=== PATIENT | female | born 1995 | race Caucasian/White ===

== ENCOUNTER 2017-12-01 08:48 | Inpatient (IN) | payer MEDICAID, OTHER ==
[2017-12-01] MEDS: LIDOCAINE/MYLANTA 40 ML BTL PO (09:43)
[2017-12-01] MEDS: BELLADONNA/PHENOBARBITAL TAB PO (09:43)
[2017-12-01 10:18] LABS: ADD UMIC NO; UR ASCORBIC ACID NEGATIVE (NEGATIVE); UR BILIRUBIN (Dip) NEGATIVE (NEGATIVE); UR BLOOD (Dip) NEGATIVE (NEGATIVE); UR CLARITY SLIGHTLY CLOUDY (CLEAR); UR COLOR YELLOW (YELLOW); UR GLUCOSE (Dip) NEGATIVE (NEGATIVE); UR KETONES (Dip) TRACE mg/dL (NEGATIVE); UR LEUKOCYTE ESTERASE (Dip) NEGATIVE Leu/ul (NEGATIVE); UR MUCUS FEW /HPF (NONE SEEN); UR NITRITE (Dip) NEGATIVE (NEGATIVE); UR RBC 3 /HPF (0-5); UR SQUAMOUS EPITHELIAL CELL MODERATE /HPF (FEW); UR TOTAL PROTEIN (Dip) NEGATIVE (NEGATIVE); UR UROBILINOGEN (Dip) NEGATIVE (NEGATIVE); UR WBC 2 /HPF (0-5)
[2017-12-01 10:48] LABS: ADD MAN DIFF? NO
[2017-12-01] MEDS: morphine 4 MG/ML VIAL IV (10:49)
[2017-12-01 10:57] LABS: BASOPHILS % 0.2 % (0.0-2.0); HEMOGLOBIN 12.5 g/dl (12.0-16.0); LYMPHOCYTES # 0.6 10^3/ul (0.8-2.9); LYMPHOCYTES % 6.3 % (18.0-55.0); MEAN CORPUSCULAR HEMOGLOBIN 27.1 pg (29.0-33.0); MEAN CORPUSCULAR HGB CONC 32.9 g/dl (32.0-37.0); MEAN CORPUSCULAR VOLUME 82.4 fl (72.0-104.0); MEAN PLATELET VOLUME 10.1 fl (7.4-10.4); MONOCYTE # 0.2 10^3/ul (0.3-0.9); MONOCYTES % 1.5 % (0.0-13.0); NEUTROPHIL # 9.2 10^3/ul (1.6-7.5); NEUTROPHILS % 91.8 % (30.0-74.0); PLATELET COUNT 339 10^3/UL (140-415); RED BLOOD COUNT 4.61 10^6/ul (4.20-5.40)
[2017-12-01 11:10] LABS: ALANINE AMINOTRANSFERASE 24 IU/L (13-69); ALBUMIN 4.6 g/dl (3.3-4.9); ALBUMIN/GLOBULIN RATIO 1.43; ALKALINE PHOSPHATASE 79 IU/L (42-121); ANION GAP 20 (8-16); ASPARTATE AMINO TRANSFERASE 21 IU/L (15-46); BILIRUBIN,INDIRECT 0.1 mg/dl (0-1.1); BILIRUBIN,TOTAL 0.1 mg/dl (0.2-1.3); BLOOD UREA NITROGEN 8 mg/dl (7-20); CALCIUM 9.8 mg/dl (8.4-10.2); CARBON DIOXIDE 24 mmol/L (21-31); CHLORIDE 106 mmol/L (97-110); CREATININE 0.61 mg/dl (0.44-1.00); GLUCOSE 102 mg/dl (70-220); LIPASE 78 U/L (23-300); POTASSIUM 4.1 mmol/L (3.5-5.1); SODIUM 146 mmol/L (135-144); TOTAL PROTEIN 7.8 g/dl (6.1-8.1)
[2017-12-01] MEDS ORDERED: ACETAMINOPHEN 325 MG TAB PO ×2 (19:30→20:00)
[2017-12-01] MEDS ORDERED: ONDANSETRON 4 MG INJ IV ×2 (19:30→20:00)
[2017-12-01] MEDS ORDERED: LORAZEPAM 2 MG INJ IV (20:00)
[2017-12-01] MEDS ORDERED: NA PHOSPHATE/BIPHOS 133 ML ENEMA PR (20:00)
[2017-12-01] MEDS ORDERED: DOCUSATE SODIUM 100 MG CAP PO (20:00)
[2017-12-01] MEDS ORDERED: MAGNESIUM HYDROXIDE 30ML CUP PO (20:00)
[2017-12-01] MEDS ORDERED: HYDROCODONE/APAP (5/325) TAB PO (20:00)
[2017-12-01] MEDS ORDERED: morphine 2 MG INJ IV (20:00)
[2017-12-01] MEDS ORDERED: hydrALAzine 20 MG INJ IV (20:00)
[2017-12-01] MEDS ORDERED: ALBUTEROL/IPRATROPIUM (NEB) 3 ML AMP HHN (20:00)
[2017-12-01] MEDS ORDERED: NITROGLYCERIN (SL) 0.4 MG TAB SL (20:00)
[2017-12-01] MEDS ORDERED: NACL 0.9% 3 ML SYG IV (20:00)
[2017-12-01] MEDS: SOD CHLORIDE 0.9% 1,000 ML IV (22:42)
[2017-12-01] MEDS: HEPARIN 5,000 UNIT/0.5 ML VIAL SC (22:44)
[2017-12-01] MEDS ORDERED: PIPER-TAZO 3.375 GM IV (PMX) 100 ML (22:50)
[2017-12-01 23:29] LABS: FREE T4 (FREE THYROXINE) 1.01 ng/dl (0.79-2.35)
[2017-12-01 23:34] LABS: INR 1.05; PARTIAL THROMBOPLASTIN TIME 34.2 Sec (25.0-35.0); PROTIME 13.8 Sec (11.9-14.9); PT RATIO 1.1
[2017-12-02] MEDS: PIPER-TAZO 3.375 GM IV (PMX) 50 ML IVPB ×2 (00:11→08:26)
[2017-12-02] MEDS ORDERED: PANTOPRAZOLE (EC) 40 MG TAB PO (06:00)
[2017-12-02] MEDS ORDERED: INDOMETHACIN 50 MG SUPP PR (08:00)
[2017-12-02] MEDS: SOD CHLORIDE 0.9% 1,000 ML IV (08:26)
[2017-12-02] MEDS ORDERED: IOHEXOL 300MG/ML 30 ML BTL (08:54)
[2017-12-02] MEDS ORDERED: FENTAnyl 50 MCG/ML VIAL IV ×3 (09:30)
[2017-12-02] MEDS ORDERED: LABETALOL HCL 20MG INJ IV (09:30)
[2017-12-02] MEDS ORDERED: ONDANSETRON 4 MG INJ IV (09:30)
[2017-12-02] MEDS ORDERED: OXYCODONE/ACETAMINOPHEN (5/325) TAB PO ×2 (09:30)
[2017-12-02] MEDS ORDERED: MIDAZOLAM 1 MG/ML 2 ML INJ IV (09:30)
[2017-12-02] MEDS ORDERED: DIPHENHYDRAMINE 50 MG INJ IV (09:30)
[2017-12-02] MEDS ORDERED: METOCLOPRAMIDE 10 MG INJ IV (09:30)
[2017-12-02] MEDS ORDERED: EPHEDrine SULFATE 50 MG/5 ML SYG IV (09:30)
[2017-12-02] MEDS ORDERED: MEPERIDINE 25 MG INJ IV (09:30)
[2017-12-02] MEDS ORDERED: hydrALAzine 20 MG INJ IV (09:30)
[2017-12-02 09:32] LABS: ADD MAN DIFF? NO
[2017-12-02] MEDS ORDERED: SUCCINYLCHOLINE CHLORIDE 100 MG/5 ML SYG IV (09:35)
[2017-12-02] MEDS ORDERED: ROCURONIUM 50 MG INJ (09:35)
[2017-12-02] MEDS ORDERED: NEOSTIGMINE 3 MG/3 ML SYRINGE (09:35)
[2017-12-02] MEDS ORDERED: GLYCOPYRROLATE 0.4 MG INJ (09:35)
[2017-12-02] MEDS ORDERED: PROPOFOL 20 ML (09:35)
[2017-12-02] MEDS ORDERED: LIDOCAINE 2% (SDV) 5 ML INJ (09:35)
[2017-12-02 09:45] LABS: BASOPHILS % 0.3 % (0.0-2.0); EOSINOPHILS % 0.5 % (0.0-7.0); HEMATOCRIT 37.5 % (37.0-47.0); HEMOGLOBIN 12.5 g/dl (12.0-16.0); LYMPHOCYTES # 1.9 10^3/ul (0.8-2.9); LYMPHOCYTES % 29.2 % (18.0-55.0); MEAN CORPUSCULAR HEMOGLOBIN 27.5 pg (29.0-33.0); MEAN CORPUSCULAR HGB CONC 33.3 g/dl (32.0-37.0); MEAN CORPUSCULAR VOLUME 82.6 fl (72.0-104.0); MEAN PLATELET VOLUME 10.2 fl (7.4-10.4); MONOCYTE # 0.5 10^3/ul (0.3-0.9); MONOCYTES % 7.1 % (0.0-13.0); NEUTROPHIL # 4.1 10^3/ul (1.6-7.5); NEUTROPHILS % 62.4 % (30.0-74.0); PLATELET COUNT 317 10^3/UL (140-415); RED BLOOD COUNT 4.54 10^6/ul (4.20-5.40); RED CELL DISTRIBUTION WIDTH 13.9 % (11.5-14.5)
[2017-12-02 09:45] LABS: WHITE BLOOD COUNT 6.6 10^3/ul (4.8-10.8)
[2017-12-02 10:00] LABS: HEMOGLOBIN A1C 5.4 % (0-5.9)
[2017-12-02 10:01] LABS: CHOLESTEROL 154 mg/dl (100-200)
[2017-12-02 10:01] LABS: CHOL/HDL RATIO 2.5 RATIO; HDL CHOLESTEROL 61 mg/dl (33-83); LDL CHOLESTEROL,CALCULATED 78 mg/dl; TRIGLYCERIDES 73 mg/dl (0-149)
[2017-12-02 10:03] LABS: ANION GAP 17 (8-16); BLOOD UREA NITROGEN 8 mg/dl (7-20); CALCIUM 8.8 mg/dl (8.4-10.2); CARBON DIOXIDE 24 mmol/L (21-31); CHLORIDE 105 mmol/L (97-110); CREATININE 0.72 mg/dl (0.44-1.00); GLUCOSE 81 mg/dl (70-220); MAGNESIUM 1.9 mg/dl (1.7-2.5); PHOSPHORUS 3.3 mg/dl (2.5-4.9); POTASSIUM 4.4 mmol/L (3.5-5.1); SODIUM 142 mmol/L (135-144)
[2017-12-02] MEDS ORDERED: ONDANSETRON 4 MG INJ (10:05)
[2017-12-02] MEDS ORDERED: METOCLOPRAMIDE 10 MG INJ (10:05)
== END 2017-12-02 15:10 | disposition home or self-care (01) | DRG 446 ==
LOC: FTE 08:48 → MS3 19:25
PROC: 0FCC8ZZ Extirpation of Matter from Ampulla of Vater, Via Natural or Artificial Opening Endoscopic (ICD-10-PCS; principal; 2017-12-02 09:00)
PROC: 0F7C8ZZ Dilation of Ampulla of Vater, Via Natural or Artificial Opening Endoscopic (ICD-10-PCS; 2017-12-02 09:00)
DX: K80.40 Calculus of bile duct with cholecystitis, unspecified, without obstruction (principal); E66.9 Obesity, unspecified; Z68.31 Body mass index [BMI] 31.0-31.9, adult
CPT/HCPCS: 74181; 74330; 76705; 80048; 80053; 80061; 81001; 81003; 83036; 83690; 83735; 84100; 84439; 84443; 84703; 85025; 85610; 85730; 96374; 99285-25

== ENCOUNTER 2018-04-05 06:55 | Inpatient (IN) | payer MEDICAID ==
[2018-04-05] MEDS: KETOROLAC 30 MG INJ IV (07:48)
[2018-04-05] MEDS: ONDANSETRON 4 MG INJ IV (07:49)
[2018-04-05] MEDS: SOD CHLORIDE 0.9% 1,000 ML IV ×2 (07:49→12:05)
[2018-04-05 08:04] LABS: ADD MAN DIFF? NO
[2018-04-05 08:11] LABS: BASOPHILS % 0.2 % (0.0-2.0); EOSINOPHILS % 0.1 % (0.0-7.0); HEMATOCRIT 40.6 % (37.0-47.0); HEMOGLOBIN 13.6 g/dl (12.0-16.0); LYMPHOCYTES # 1.1 10^3/ul (0.8-2.9); LYMPHOCYTES % 9.1 % (18.0-55.0); MEAN CORPUSCULAR HEMOGLOBIN 27.9 pg (29.0-33.0); MEAN CORPUSCULAR HGB CONC 33.5 g/dl (32.0-37.0); MEAN CORPUSCULAR VOLUME 83.4 fl (72.0-104.0); MEAN PLATELET VOLUME 9.6 fl (7.4-10.4); MONOCYTE # 0.5 10^3/ul (0.3-0.9); MONOCYTES % 3.9 % (0.0-13.0); NEUTROPHIL # 10.3 10^3/ul (1.6-7.5); NEUTROPHILS % 86.3 % (30.0-74.0); PLATELET COUNT 368 10^3/UL (140-415); RED BLOOD COUNT 4.87 10^6/ul (4.20-5.40); RED CELL DISTRIBUTION WIDTH 14.4 % (11.5-14.5)
[2018-04-05 08:11] LABS: WHITE BLOOD COUNT 11.9 10^3/ul (4.8-10.8)
[2018-04-05] MEDS: morphine 4 MG/ML VIAL IV (08:16)
[2018-04-05 08:32] LABS: ALANINE AMINOTRANSFERASE 18 IU/L (13-69); ALBUMIN 4.6 g/dl (3.3-4.9); ALBUMIN/GLOBULIN RATIO 1.27; ALKALINE PHOSPHATASE 83 IU/L (42-121); ANION GAP 16 (8-16); ASPARTATE AMINO TRANSFERASE 23 IU/L (15-46); BILIRUBIN,INDIRECT 0.7 mg/dl (0-1.1); BILIRUBIN,TOTAL 0.7 mg/dl (0.2-1.3); BLOOD UREA NITROGEN 8 mg/dl (7-20); CALCIUM 9.1 mg/dl (8.4-10.2); CARBON DIOXIDE 28 mmol/L (21-31); CHLORIDE 102 mmol/L (97-110); CREATININE 0.69 mg/dl (0.44-1.00); GLUCOSE 113 mg/dl (70-220); LIPASE 54 U/L (23-300); POTASSIUM 3.9 mmol/L (3.5-5.1); SODIUM 142 mmol/L (135-144); TOTAL PROTEIN 8.2 g/dl (6.1-8.1)
[2018-04-05 09:28] LABS: ADD UMIC YES; UR ASCORBIC ACID NEGATIVE (NEGATIVE); UR BACTERIA FEW /HPF (NONE SEEN); UR BILIRUBIN (Dip) NEGATIVE (NEGATIVE); UR BLOOD (Dip) NEGATIVE (NEGATIVE); UR CLARITY CLOUDY (CLEAR); UR COLOR YELLOW (YELLOW); UR GLUCOSE (Dip) NEGATIVE (NEGATIVE); UR KETONES (Dip) 1+ mg/dL (NEGATIVE); UR LEUKOCYTE ESTERASE (Dip) NEGATIVE Leu/ul (NEGATIVE); UR MUCUS FEW /HPF (NONE SEEN); UR NITRITE (Dip) NEGATIVE (NEGATIVE); UR RBC 3 /HPF (0-5); UR SQUAMOUS EPITHELIAL CELL MODERATE /HPF (FEW); UR TOTAL PROTEIN (Dip) NEGATIVE (NEGATIVE); UR UROBILINOGEN (Dip) NEGATIVE (NEGATIVE); UR WBC 2 /HPF (0-5)
[2018-04-05] MEDS ORDERED: ONDANSETRON 4 MG INJ IV (11:30)
[2018-04-05] MEDS: ACETAMINOPHEN 325 MG TAB PO (12:05)
[2018-04-05] MEDS ORDERED: NACL 0.9% 3 ML SYG IV (13:30)
[2018-04-05] MEDS ORDERED: morphine 2 MG INJ IV (13:30)
[2018-04-05] MEDS ORDERED: ACETAMINOPHEN 325 MG TAB PO (13:30)
[2018-04-05] MEDS ORDERED: HYDROCODONE/APAP (5/325) TAB PO (13:30)
[2018-04-05] MEDS: 1/2 NS + KCL 20 MEQ 1,000 ML IV ×2 (14:01→23:28)
[2018-04-05] MEDS: PIPER-TAZO 3.375 GM IV (PMX) 100 ML IVPB ×2 (17:47→23:34)
[2018-04-06] MEDS: 1/2 NS + KCL 20 MEQ 1,000 ML IV ×3 (03:08→18:38)
[2018-04-06] MEDS: ONDANSETRON 4 MG INJ IV ×2 (04:50→18:33)
[2018-04-06] MEDS: PIPER-TAZO 3.375 GM IV (PMX) 100 ML IVPB ×4 (05:29→23:40)
[2018-04-06 06:29] LABS: ADD MAN DIFF? NO
[2018-04-06 06:32] LABS: BASOPHILS % 0.2 % (0.0-2.0); EOSINOPHILS % 0.5 % (0.0-7.0); HEMATOCRIT 36.4 % (37.0-47.0); HEMOGLOBIN 12.1 g/dl (12.0-16.0); LYMPHOCYTES # 1.2 10^3/ul (0.8-2.9); LYMPHOCYTES % 13.7 % (18.0-55.0); MEAN CORPUSCULAR HEMOGLOBIN 27.7 pg (29.0-33.0); MEAN CORPUSCULAR HGB CONC 33.2 g/dl (32.0-37.0); MEAN CORPUSCULAR VOLUME 83.3 fl (72.0-104.0); MEAN PLATELET VOLUME 9.5 fl (7.4-10.4); MONOCYTE # 0.4 10^3/ul (0.3-0.9); MONOCYTES % 4.7 % (0.0-13.0); NEUTROPHILS % 80.7 % (30.0-74.0); PLATELET COUNT 298 10^3/UL (140-415); RED BLOOD COUNT 4.37 10^6/ul (4.20-5.40); RED CELL DISTRIBUTION WIDTH 14.1 % (11.5-14.5)
[2018-04-06 06:32] LABS: WHITE BLOOD COUNT 8.7 10^3/ul (4.8-10.8)
[2018-04-06 06:58] LABS: ALANINE AMINOTRANSFERASE 20 IU/L (13-69); ALBUMIN 3.8 g/dl (3.3-4.9); ALBUMIN/GLOBULIN RATIO 1.31; ALKALINE PHOSPHATASE 71 IU/L (42-121); ANION GAP 14 (8-16); ASPARTATE AMINO TRANSFERASE 19 IU/L (15-46); BILIRUBIN,INDIRECT 0.9 mg/dl (0-1.1); BILIRUBIN,TOTAL 0.9 mg/dl (0.2-1.3); BLOOD UREA NITROGEN 8 mg/dl (7-20); CALCIUM 8.7 mg/dl (8.4-10.2); CARBON DIOXIDE 25 mmol/L (21-31); CHLORIDE 106 mmol/L (97-110); CREATININE 0.64 mg/dl (0.44-1.00); GLUCOSE 70 mg/dl (70-220); MAGNESIUM 1.8 mg/dl (1.7-2.5); PHOSPHORUS 3.3 mg/dl (2.5-4.9); POTASSIUM 4.3 mmol/L (3.5-5.1); SODIUM 141 mmol/L (135-144); TOTAL PROTEIN 6.7 g/dl (6.1-8.1)
[2018-04-06] MEDS ORDERED: ONDANSETRON 4 MG INJ (07:00)
[2018-04-06] MEDS ORDERED: ROCURONIUM 50 MG INJ (07:00)
[2018-04-06] MEDS ORDERED: DEXAMETHASONE 4 MG/ML 1 ML INJ (07:00)
[2018-04-06] MEDS: INDOMETHACIN 50 MG SUPP PR (14:00)
[2018-04-06] MEDS ORDERED: PROPOFOL 100 ML (15:56)
[2018-04-06] MEDS ORDERED: IOHEXOL 300MG/ML 30 ML BTL (15:59)
[2018-04-06] MEDS ORDERED: MIDAZOLAM 1 MG/ML 2 ML INJ IV (16:00)
[2018-04-06] MEDS ORDERED: OXYCODONE/ACETAMINOPHEN (5/325) TAB PO ×2 (16:00)
[2018-04-06] MEDS ORDERED: DIPHENHYDRAMINE 50 MG INJ IV (16:00)
[2018-04-06] MEDS ORDERED: ONDANSETRON 4 MG INJ IV (16:00)
[2018-04-06] MEDS ORDERED: hydrALAzine 20 MG INJ IV (16:00)
[2018-04-06] MEDS ORDERED: EPHEDrine SULFATE 50 MG/5 ML SYG IV (16:00)
[2018-04-06] MEDS ORDERED: MEPERIDINE 25 MG INJ IV (16:00)
[2018-04-06] MEDS ORDERED: METOCLOPRAMIDE 10 MG INJ IV (16:00)
[2018-04-06] MEDS ORDERED: LABETALOL HCL 20MG INJ IV (16:00)
[2018-04-06] MEDS ORDERED: FENTAnyl 50 MCG/ML VIAL IV ×3 (16:00)
[2018-04-06] MEDS ORDERED: HYDROmorphONE (0.2 MG/ML) 10ML SYG IV ×3 (16:00)
[2018-04-06] MEDS ORDERED: ALBUTEROL 0.083% (NEB) 2.5 MG/3 ML AMP HHN (16:00)
[2018-04-06] MEDS ORDERED: KETOROLAC 30 MG INJ IV (16:00)
[2018-04-06] MEDS ORDERED: LABETALOL HCL 20MG INJ (16:42)
[2018-04-06] MEDS ORDERED: SUGAMMADEX SODIUM 200 MG/2 ML VIAL IV (17:16)
[2018-04-07] MEDS: PIPER-TAZO 3.375 GM IV (PMX) 100 ML IVPB (06:00)
[2018-04-07] MEDS: 1/2 NS + KCL 20 MEQ 1,000 ML IV (06:01)
[2018-04-07 06:04] LABS: ADD MAN DIFF? NO
[2018-04-07 06:24] LABS: WHITE BLOOD COUNT 7.5 10^3/ul (4.8-10.8)
[2018-04-07 06:24] LABS: BASOPHILS % 0.3 % (0.0-2.0); EOSINOPHILS # 0.1 10^3/ul (0.0-0.5); EOSINOPHILS % 0.7 % (0.0-7.0); HEMATOCRIT 35.1 % (37.0-47.0); HEMOGLOBIN 11.6 g/dl (12.0-16.0); LYMPHOCYTES # 1.3 10^3/ul (0.8-2.9); MEAN CORPUSCULAR HEMOGLOBIN 27.6 pg (29.0-33.0); MEAN CORPUSCULAR VOLUME 83.4 fl (72.0-104.0); MEAN PLATELET VOLUME 9.7 fl (7.4-10.4); MONOCYTE # 0.4 10^3/ul (0.3-0.9); NEUTROPHIL # 5.6 10^3/ul (1.6-7.5); NEUTROPHILS % 75.6 % (30.0-74.0); PLATELET COUNT 305 10^3/UL (140-415); RED BLOOD COUNT 4.21 10^6/ul (4.20-5.40); RED CELL DISTRIBUTION WIDTH 14.2 % (11.5-14.5)
[2018-04-07 06:58] LABS: ALANINE AMINOTRANSFERASE 23 IU/L (13-69); ALBUMIN 3.5 g/dl (3.3-4.9); ALBUMIN/GLOBULIN RATIO 1.16; ALKALINE PHOSPHATASE 62 IU/L (42-121); ANION GAP 13 (8-16); ASPARTATE AMINO TRANSFERASE 21 IU/L (15-46); BILIRUBIN,INDIRECT 0.6 mg/dl (0-1.1); BILIRUBIN,TOTAL 0.6 mg/dl (0.2-1.3); BLOOD UREA NITROGEN 7 mg/dl (7-20); CALCIUM 8.6 mg/dl (8.4-10.2); CARBON DIOXIDE 26 mmol/L (21-31); CHLORIDE 105 mmol/L (97-110); CREATININE 0.71 mg/dl (0.44-1.00); GLUCOSE 72 mg/dl (70-220); POTASSIUM 4.6 mmol/L (3.5-5.1); SODIUM 139 mmol/L (135-144); TOTAL PROTEIN 6.5 g/dl (6.1-8.1)
[2018-04-07] MEDS ORDERED: LIDOCAINE 1% (MDV) 20 ML INJ (09:33)
[2018-04-07] MEDS ORDERED: ROCURONIUM 50 MG INJ (09:33)
[2018-04-07] MEDS ORDERED: MIDAZOLAM 1 MG/ML 2 ML INJ (09:33)
[2018-04-07] MEDS ORDERED: PROPOFOL 20 ML (09:33)
[2018-04-07] MEDS: D5-NS + KCL 20 MEQ 1,000 ML IV ×2 (09:45→12:35)
[2018-04-07] MEDS: BUPIVACAINE 0.25%/EPI (SDV) 30 ML INJ INJ (09:52)
[2018-04-07] MEDS: LIDOCAINE 1% (MPF) 30 ML INJ INJ (09:52)
[2018-04-07] MEDS ORDERED: FAMOTIDINE 20 MG INJ (09:56)
[2018-04-07] MEDS ORDERED: ONDANSETRON 4 MG INJ (09:56)
[2018-04-07] MEDS ORDERED: DEXAMETHASONE 4 MG/ML 1 ML INJ (09:56)
[2018-04-07] MEDS: KETOROLAC 15 MG INJ IV ×2 (10:00→17:27)
[2018-04-07] MEDS ORDERED: ACETAMINOPHEN 325 MG TAB PO (10:00)
[2018-04-07] MEDS ORDERED: SUGAMMADEX SODIUM 200 MG/2 ML VIAL IV (10:28)
[2018-04-07] MEDS ORDERED: METOCLOPRAMIDE 10 MG INJ IV (11:00)
[2018-04-07] MEDS ORDERED: ONDANSETRON 4 MG INJ IV (11:00)
[2018-04-07] MEDS: HYDROmorphONE (0.2 MG/ML) 10ML SYG IV ×2 (11:20→11:25)
[2018-04-07] MEDS: HYDROmorphONE 0.5 MG/0.5 ML SYG IV (12:35)
[2018-04-07] MEDS: ONDANSETRON 4 MG INJ IV (13:18)
[2018-04-07] MEDS: HYDROCODONE/APAP (5/325) TAB PO (21:16)
[2018-04-08] MEDS: KETOROLAC 15 MG INJ IV ×3 (00:17→12:38)
[2018-04-08] MEDS: D5-NS + KCL 20 MEQ 1,000 ML IV ×2 (00:21→05:22)
[2018-04-08 05:49] LABS: ADD MAN DIFF? NO
[2018-04-08 05:52] LABS: WHITE BLOOD COUNT 11.3 10^3/ul (4.8-10.8)
[2018-04-08 05:52] LABS: BASOPHILS % 0.2 % (0.0-2.0); EOSINOPHILS % 0.3 % (0.0-7.0); HEMATOCRIT 35.6 % (37.0-47.0); HEMOGLOBIN 11.9 g/dl (12.0-16.0); LYMPHOCYTES # 1.9 10^3/ul (0.8-2.9); LYMPHOCYTES % 17.1 % (18.0-55.0); MEAN CORPUSCULAR HEMOGLOBIN 27.9 pg (29.0-33.0); MEAN CORPUSCULAR HGB CONC 33.4 g/dl (32.0-37.0); MEAN CORPUSCULAR VOLUME 83.4 fl (72.0-104.0); MEAN PLATELET VOLUME 9.6 fl (7.4-10.4); MONOCYTE # 0.8 10^3/ul (0.3-0.9); MONOCYTES % 7.1 % (0.0-13.0); NEUTROPHIL # 8.5 10^3/ul (1.6-7.5); NEUTROPHILS % 74.9 % (30.0-74.0); PLATELET COUNT 306 10^3/UL (140-415); RED BLOOD COUNT 4.27 10^6/ul (4.20-5.40); RED CELL DISTRIBUTION WIDTH 14.3 % (11.5-14.5)
[2018-04-08 06:26] LABS: ALANINE AMINOTRANSFERASE 44 IU/L (13-69); ALBUMIN 3.6 g/dl (3.3-4.9); ALBUMIN/GLOBULIN RATIO 1.16; ALKALINE PHOSPHATASE 63 IU/L (42-121); ANION GAP 14 (8-16); ASPARTATE AMINO TRANSFERASE 46 IU/L (15-46); BILIRUBIN,INDIRECT 0.4 mg/dl (0-1.1); BILIRUBIN,TOTAL 0.4 mg/dl (0.2-1.3); BLOOD UREA NITROGEN 5 mg/dl (7-20); CALCIUM 8.6 mg/dl (8.4-10.2); CARBON DIOXIDE 27 mmol/L (21-31); CHLORIDE 104 mmol/L (97-110); CREATININE 0.64 mg/dl (0.44-1.00); GLUCOSE 87 mg/dl (70-220); POTASSIUM 4.2 mmol/L (3.5-5.1); SODIUM 141 mmol/L (135-144); TOTAL PROTEIN 6.7 g/dl (6.1-8.1)
[2018-04-08] MEDS: ENOXAPARIN 40 MG/0.4 ML SYG SC (06:37)
[2018-04-08 06:47] LABS: MAGNESIUM 1.8 mg/dl (1.7-2.5)
[2018-04-09] MEDS ORDERED: IBUPROFEN 600 MG TAB PO (12:00)
== END 2018-04-08 16:15 | disposition home or self-care (01) | DRG 419 ==
LOC: FTE 06:55 → MS2 11:09
PROC: 0F798DZ Dilation of Common Bile Duct with Intraluminal Device, Via Natural or Artificial Opening Endoscopic (ICD-10-PCS; 2018-04-06 16:00)
PROC: BF10YZZ Fluoroscopy of Bile Ducts using Other Contrast (ICD-10-PCS; 2018-04-06 16:00)
PROC: 0FT44ZZ Resection of Gallbladder, Percutaneous Endoscopic Approach (ICD-10-PCS; principal; 2018-04-06 16:35)
DX: K80.66 Calculus of gallbladder and bile duct with acute and chronic cholecystitis without obstruction (principal); K26.9 Duodenal ulcer, unspecified as acute or chronic, without hemorrhage or perforation; F17.210 Nicotine dependence, cigarettes, uncomplicated; R11.2 Nausea with vomiting, unspecified
CPT/HCPCS: 74181; 74330; 76705; 80053; 81001; 81025; 83036; 83690; 83735; 84100; 84703; 85025; 88304

== ENCOUNTER 2018-04-08 21:36 | Emergency (ER) | payer SELFPAY, OTHER, MEDICAID ==
[2018-04-08] MEDS: ONDANSETRON 4 MG INJ IV (22:06)
[2018-04-08] MEDS: SOD CHLORIDE 0.9% 1,000 ML IV (22:06)
[2018-04-08] MEDS: morphine 4 MG/ML VIAL IV (22:06)
[2018-04-08 22:20] LABS: ADD MAN DIFF? NO
[2018-04-08 22:23] LABS: BASOPHILS % 0.3 % (0.0-2.0); EOSINOPHILS # 0.1 10^3/ul (0.0-0.5); EOSINOPHILS % 0.7 % (0.0-7.0); HEMATOCRIT 39.3 % (37.0-47.0); HEMOGLOBIN 12.8 g/dl (12.0-16.0); LYMPHOCYTES # 2.2 10^3/ul (0.8-2.9); LYMPHOCYTES % 18.8 % (18.0-55.0); MEAN CORPUSCULAR HEMOGLOBIN 27.4 pg (29.0-33.0); MEAN CORPUSCULAR HGB CONC 32.6 g/dl (32.0-37.0); MEAN PLATELET VOLUME 9.5 fl (7.4-10.4); MONOCYTE # 0.7 10^3/ul (0.3-0.9); MONOCYTES % 6.3 % (0.0-13.0); NEUTROPHIL # 8.6 10^3/ul (1.6-7.5); NEUTROPHILS % 73.5 % (30.0-74.0); PLATELET COUNT 341 10^3/UL (140-415); RED BLOOD COUNT 4.68 10^6/ul (4.20-5.40); RED CELL DISTRIBUTION WIDTH 14.6 % (11.5-14.5)
[2018-04-08 22:23] LABS: WHITE BLOOD COUNT 11.6 10^3/ul (4.8-10.8)
[2018-04-08 22:46] LABS: ALANINE AMINOTRANSFERASE 61 IU/L (13-69); ALBUMIN 4.2 g/dl (3.3-4.9); ALKALINE PHOSPHATASE 90 IU/L (42-121); ANION GAP 14 (8-16); ASPARTATE AMINO TRANSFERASE 79 IU/L (15-46); BILIRUBIN,INDIRECT 0.4 mg/dl (0-1.1); BILIRUBIN,TOTAL 0.4 mg/dl (0.2-1.3); BLOOD UREA NITROGEN 9 mg/dl (7-20); CALCIUM 9.1 mg/dl (8.4-10.2); CARBON DIOXIDE 29 mmol/L (21-31); CHLORIDE 102 mmol/L (97-110); CREATININE 0.71 mg/dl (0.44-1.00); GLUCOSE 125 mg/dl (70-220); LIPASE 68 U/L (23-300); POTASSIUM 3.7 mmol/L (3.5-5.1); SODIUM 141 mmol/L (135-144); TOTAL PROTEIN 7.7 g/dl (6.1-8.1)
[2018-04-08] MEDS: HYDROmorphONE 1 MG/5 ML IV SYRINGE IV (23:22)
== END 2018-04-09 00:21 | disposition home or self-care (01) ==
LOC: E/R 04-09 00:21
DX: G89.18 Other acute postprocedural pain (principal)
CPT/HCPCS: 36415; 74176; 80053; 81025; 83690; 85025; 96374; 96375; 99285-25

== ENCOUNTER 2019-04-28 07:12 | Inpatient (IN) | payer OTHER, MEDICAID ==
[2019-04-28 07:58] LABS: ADD MAN DIFF? NO
[2019-04-28] MEDS ORDERED: OXYTOCIN 30 UNITS/LR 500 ML IV (08:00)
[2019-04-28] MEDS ORDERED: MISOPROSTOL 200 MCG TAB PR (08:00)
[2019-04-28] MEDS ORDERED: BUTORPHANOL 2 MG INJ IV (08:00)
[2019-04-28] MEDS ORDERED: LIDOCAINE 1% (MPF) 30 ML INJ INJ (08:00)
[2019-04-28] MEDS ORDERED: CARBOPROST 250 MCG INJ IM (08:00)
[2019-04-28 08:06] LABS: WHITE BLOOD COUNT 11.4 10^3/ul (4.8-10.8)
[2019-04-28 08:06] LABS: BASOPHILS % 0.3 % (0.0-2.0); EOSINOPHILS # 0.1 10^3/ul (0.0-0.5); EOSINOPHILS % 0.4 % (0.0-7.0); HEMATOCRIT 34.9 % (37.0-47.0); HEMOGLOBIN 11.6 g/dl (12.0-16.0); LYMPHOCYTES # 1.2 10^3/ul (0.8-2.9); LYMPHOCYTES % 10.7 % (15.0-51.0); MEAN CORPUSCULAR HEMOGLOBIN 27.8 pg (29.0-33.0); MEAN CORPUSCULAR HGB CONC 33.2 g/dl (32.0-37.0); MEAN CORPUSCULAR VOLUME 83.5 fl (82.0-101.0); MEAN PLATELET VOLUME 10.7 fl (7.4-10.4); MONOCYTE # 0.6 10^3/ul (0.3-0.9); NEUTROPHIL # 9.4 10^3/ul (1.6-7.5); NEUTROPHILS % 82.5 % (39.0-77.0); PLATELET COUNT 275 10^3/UL (140-415); RED BLOOD COUNT 4.18 10^6/ul (4.20-5.40); RED CELL DISTRIBUTION WIDTH 14.2 % (11.5-14.5)
[2019-04-28 08:26] LABS: INR 0.87; PROTIME 11.9 Sec (11.9-14.9); PT RATIO 0.9
[2019-04-28 08:27] LABS: PARTIAL THROMBOPLASTIN TIME 30.5 Sec (23.0-35.0)
[2019-04-28] MEDS: LACTATED RINGER'S 1,000 ML IV ×3 (09:42→21:36)
[2019-04-28] MEDS: AMPICILLIN 2 GM/NS (PMX) 100 ML IVPB (09:55)
[2019-04-28] MEDS: AMPICILLIN 1 GM/NS (PMX) 50 ML IVPB ×3 (14:03→22:44)
[2019-04-28] MEDS ORDERED: FENTAnyl 2MCG/ML-ROPIV 0.2% 100 ML (17:55)
[2019-04-28] MEDS ORDERED: ONDANSETRON 4 MG INJ IV (18:00)
[2019-04-28] MEDS ORDERED: DIPHENHYDRAMINE 50 MG INJ IV (18:00)
[2019-04-28] MEDS ORDERED: NALOXONE (0.4 MG/ML) INJ IV (18:00)
[2019-04-28] MEDS: OXYTOCIN 30 UNITS/LR 500 ML IV (20:40)
[2019-04-28 21:31] LABS: RAPID PLASMA REAGIN NONREACTIVE (NR)
[2019-04-29] MEDS: FENTAnyl 2MCG/ML-ROPIV 0.2% 100 ML BAG EPI ×2 (02:23→10:49)
[2019-04-29] MEDS: AMPICILLIN 1 GM/NS (PMX) 50 ML IVPB ×3 (03:06→09:05)
[2019-04-29] MEDS: LACTATED RINGER'S 1,000 ML IV ×2 (06:52→10:45)
[2019-04-29] MEDS: GENTAMICIN 80 MG/NS (PMX) 50 ML IVPB (11:33)
[2019-04-29] MEDS: ACETAMINOPHEN 325 MG TAB PO (11:33)
[2019-04-29] MEDS: METHYLERGONOVINE 0.2 MG INJ IM (12:08)
[2019-04-29] MEDS ORDERED: NACL 0.9% 3 ML SYG IV (12:30)
[2019-04-29] MEDS ORDERED: SENNA/DOCUSATE NA (8.6MG/50MG) TAB PO (12:30)
[2019-04-29] MEDS ORDERED: ACETAMINOPHEN 325 MG TAB PO (12:30)
[2019-04-29] MEDS ORDERED: OXYCODONE/ASPIRIN (4.88/325) TAB PO (12:30)
[2019-04-29] MEDS ORDERED: MISOPROSTOL 200 MCG TAB PR (12:30)
[2019-04-29] MEDS ORDERED: METHYLERGONOVINE 0.2 MG INJ IM (12:30)
[2019-04-29] MEDS ORDERED: CARBOPROST 250 MCG INJ IM (12:30)
[2019-04-29] MEDS ORDERED: OXYTOCIN 30 UNITS/LR 500 ML IV (12:30)
[2019-04-29] MEDS ORDERED: ONDANSETRON 4 MG INJ IV (12:30)
[2019-04-29] MEDS: OXYTOCIN 30 UNITS/LR 500 ML IV ×3 (12:34→16:38)
[2019-04-29] MEDS: OXYCODONE/ASPIRIN (4.88/325) TAB PO (14:07)
[2019-04-29] MEDS: CEFAZOLIN 2 GM/50 ML (PMX) 50 ML IVPB ×2 (14:54→21:48)
[2019-04-29 16:58] LABS: AMPHETAMINE/METHAMPHETAMINE Negative (NEGATIVE); BARBITURATES Negative (NEGATIVE); BENZODIAZEPINES Negative (NEGATIVE); CANNABINOIDS Negative (NEGATIVE); COCAINE Negative (NEGATIVE); OPIATES Negative (NEGATIVE)
[2019-04-29] MEDS: IBUPROFEN 600 MG TAB PO ×2 (17:42→23:45)
[2019-04-29] MEDS: SENNA/DOCUSATE NA (8.6MG/50MG) TAB PO (21:48)
[2019-04-29] MEDS: WITCH HAZEL/GLYCERIN PAD PR (23:43)
[2019-04-29] MEDS: LANOLIN HPA 1 PKT TOP (23:44)
[2019-04-30] MEDS: CEFAZOLIN 2 GM/50 ML (PMX) 50 ML IVPB (05:55)
[2019-04-30] MEDS: IBUPROFEN 600 MG TAB PO ×4 (05:55→23:40)
[2019-04-30 07:41] LABS: ADD MAN DIFF? NO
[2019-04-30 07:49] LABS: BASOPHILS % 0.3 % (0.0-2.0); EOSINOPHILS # 0.1 10^3/ul (0.0-0.5); EOSINOPHILS % 0.5 % (0.0-7.0); HEMATOCRIT 30.1 % (37.0-47.0); HEMOGLOBIN 9.8 g/dl (12.0-16.0); LYMPHOCYTES # 1.3 10^3/ul (0.8-2.9); LYMPHOCYTES % 10.2 % (15.0-51.0); MEAN CORPUSCULAR HEMOGLOBIN 27.9 pg (29.0-33.0); MEAN CORPUSCULAR HGB CONC 32.6 g/dl (32.0-37.0); MEAN CORPUSCULAR VOLUME 85.8 fl (82.0-101.0); MEAN PLATELET VOLUME 10.9 fl (7.4-10.4); MONOCYTE # 0.8 10^3/ul (0.3-0.9); MONOCYTES % 6.1 % (0.0-11.0); NEUTROPHIL # 10.5 10^3/ul (1.6-7.5); NEUTROPHILS % 81.7 % (39.0-77.0); PLATELET COUNT 204 10^3/UL (140-415); RED BLOOD COUNT 3.51 10^6/ul (4.20-5.40); RED CELL DISTRIBUTION WIDTH 14.6 % (11.5-14.5)
[2019-04-30 07:49] LABS: WHITE BLOOD COUNT 12.9 10^3/ul (4.8-10.8)
[2019-04-30] MEDS: SENNA/DOCUSATE NA (8.6MG/50MG) TAB PO ×2 (08:39→21:00)
[2019-05-01] MEDS: IBUPROFEN 600 MG TAB PO ×2 (05:37→12:00)
[2019-05-01] MEDS: SENNA/DOCUSATE NA (8.6MG/50MG) TAB PO (09:00)
== END 2019-05-01 12:55 | disposition home or self-care (01) | DRG 807 ==
LOC: OBT 07:12 → L-D 07:16 → PP1 04-29 14:27 → OBT 07:27 → L-D 07:27
PROVIDERS: Obstetrics & Gynecology
PROC: 4A1HXCZ Monitoring of Products of Conception, Cardiac Rate, External Approach (ICD-10-PCS; 2019-04-28)
PROC: 10E0XZZ Delivery of Products of Conception, External Approach (ICD-10-PCS; principal; 2019-04-29)
PROC: 0KQM0ZZ Repair Perineum Muscle, Open Approach (ICD-10-PCS; 2019-04-29)
DX: O48.0 Post-term pregnancy (principal); Z37.0 Single live birth; O70.1 Second degree perineal laceration during delivery; Z3A.40 40 weeks gestation of pregnancy
CPT/HCPCS: 62322; 76815; 80307; 85025; 85610; 85730; 86592; 86850; 86900; 86901